=== PATIENT | male | born 1985 | race Caucasian/White ===

== ENCOUNTER 2018-09-05 19:48 | Emergency (ER) | payer OTHER ==
[~2018-09-05 19:48] MED LIST: ALP25 PO; CETI5TAB22 PO; FLUTR; PAN40 PO; RANI-320 PO; SER50 PO
--- NOTE | 2018-09-05 19:51 | ER Report ---
History and Physical Time Seen By MD: 19:51 HPI/ROS CHIEF COMPLAINT: Difficulty breathing HISTORY OF PRESENT ILLNESS: 33-year-old male been sick for approximately one week. He was seen at urgent care a few days ago after using his son's inhaler with improvement. Patient had a chest x-ray today which was negative. He received doxycycline. Patient was improved with albuterol neb. He did receive an inhaler and an albuterol nebulizer for home. Patient took a nebulizer before coming in. On arrival, patient's pulse ox is in the mid 80s. He's complaining of chest discomfort and tightness with deep inspiration. Patient notes no fever. He has a cough of mostly whitish sputum. She took ibuprofen at home several hours ago without improvement. REVIEW OF SYSTEMS: Respiratory: As above Cardiovascular: No chest pain, no palpitations. Gastrointestinal: No vomiting, no abdominal pain. Musculoskeletal: No back pain. Allergies: Coded Allergies: Peanut (Verified Adverse Reaction, Mild, MIGRAIN, 03/29/08) Home Meds Active Scripts Promethazine HCl/Codeine (Promethazine-Codeine Syrup) 6.25 Mg-10 Mg/5 Ml Syrup, 5-10 ML PO Q4-6H PRN for COUGH, #120 Prov:KUSH PEGUERO DO 09/05/18 Prednisone (PREDNISONE) 20 Mg Tablet, 20 MG PO QDAY for reduce lung inflammation, #9 2. By mouth daily for 3 days then 1 by mouth daily for 3 days Prov:KUSH PEGUERO DO 09/05/18 Cefuroxime Axetil (CEFUROXIME) 500 Mg Tablet, 500 MG PO BID for infection, #14 TAB Prov:KUSH PEGUERO DO 09/05/18 Reported Medications Alprazolam (Xanax) 0.25 Mg Tab, 0.25 MG PO TID PRN, #20 0 Refills 03/29/08 Sertraline Hcl (Zoloft) 50 Mg Tab, 50 MG PO QDAY, #30 0 Refills 03/29/08 Fluticasone Propionate (Flonase) 16 Gm [place], 0 NA QDAY, 0 Refills SPRAY 2 SPRAYS IN EACH NOSTRIL 03/29/08 Cetirizine Hcl (Zyrtec) 5 Mg Tablet, 5 MG PO, 0 Refills 03/29/08 Ranitidine Hcl (Zantac 300 Mg) 300 Mg Tablet, 300 MG PO, 0 Refills 03/29/08 Pantoprazole Sod (Protonix) 40 Mg [place], 40 MG PO QDAY, 0 Refills 03/29/08 Past Medical/Surgical History Depression,? Reactive airways disease Past surgical history tonsillectomy Reviewed Nurses Notes: Yes Old Medical Records Reviewed: Yes Constitutional Vital Sign - Last 24 Hours 09/05/18 09/05/18 09/05/18 09/05/18 19:51 19:51 19:55 19:55 Temp 98.8 Pulse 84 84 Resp 20 16 B/P (MAP) 115/72 (86) 115/72 Pulse Ox 86 98 O2 Delivery Room Air Nasal Cannula O2 Flow Rate 2.0 09/05/18 09/05/18 09/05/18 09/05/18 20:00 20:01 20:10 20:15 Pulse 86 Resp 16 B/P (MAP) 107/67 (80) 117/65 (82) O2 Flow Rate 2.0 09/05/18 09/05/18 09/05/18 20:18 20:45 20:48 Pulse 88 81 B/P (MAP) 107/63 (78) Pulse Ox 95 97 Physical Exam Vital signs stable, afebrile, pulse ox mid 80s General Appearance: The patient is alert, has no immediate need for airway protection and no current signs of toxicity. Slightly pale appearing, skin warm and dry HEENT: Pupils equal and round no injection. TMs normal, oropharynx with mild erythema Respiratory: Chest is non tender,expiratory wheezing, poor air movement Cardiac: regular rate and rhythm Gastrointestinal: Abdomen is soft and non tender, no masses, bowel sounds normal. Musculoskeletal: Neck: Neck is supple and non tender. No lymphadenopathy, no JVD Extremities have full range of motion and are non tender. No edema, no calf tenderness Skin: No rashes or lesions. DIFFERENTIAL DIAGNOSIS: After history and physical exam differential diagnosis was considered for shortness of breath including but not limited to pulmonary infectious process, COPD, asthma, pulmonary embolus and congestive heart failure. Medical Decision Making Data Points Result Diagram: 09/05/18195409/05/181954 Laboratory Hematology Test 09/05/18 19:55 09/05/18 20:09 Red Blood Count 4.96 M/uL (4.00-5.60) Mean Corpuscular Volume 88.5 fL (80.0-96.0) Mean Corpuscular Hemoglobin 30.4 pg (26.0-33.0) Mean Corpuscular Hemoglobin Concent 34.3 g/dL (32.0-36.0) Red Cell Distribution Width 13.0 % (11.5-14.5) Mean Platelet Volume 7.6 fL (7.2-11.1) Neutrophils (%) (Auto) 85.3 % (39.4-72.5) Lymphocytes (%) (Auto) 10.6 % (17.6-49.6) Monocytes (%) (Auto) 2.9 % (4.1-12.4) Eosinophils (%) (Auto) 0.7 % (0.4-6.7) Basophils (%) (Auto) 0.5 % (0.3-1.4) Nucleated RBC Relative Count (auto) 0.1 /100WBC Neutrophils # (Auto) 16.0 K/uL (2.0-7.4) Lymphocytes # (Auto) 2.0 K/uL (1.3-3.6) Monocytes # (Auto) 0.5 K/uL (0.3-1.0) Eosinophils # (Auto) 0.1 K/uL (0.0-0.5) Basophils # (Auto) 0.1 K/uL (0.0-0.1) Nucleated RBC Absolute Count (auto) 0.01 K/uL Sodium Level 139 mmol/L (137-145) Potassium Level 3.6 mmol/L (3.5-5.0) Chloride Level 108 mmol/L (98-107) Carbon Dioxide Level 24 mmol/L (22-30) Blood Urea Nitrogen 24 mg/dl (9-21) Creatinine 1.20 mg/dl (0.66-1.25) Glomerular Filtration Rate Calc > 60.0 Random Glucose 138 mg/dl (75-110) Calcium Level 8.9 mg/dl (8.4-10.2) Total Bilirubin 0.5 mg/dl (0.2-1.3) Aspartate Amino Transf (AST/SGOT) 18 U/L (0-35) Alanine Aminotransferase (ALT/SGPT) 20 U/L (0-56) Alkaline Phosphatase 69 U/L (0-126) Troponin I < 0.012 ng/ml B-Type Natriuretic Peptide 31 pg/ml (0-100) Total Protein 6.2 g/dl (6.3-8.2) Albumin 3.7 g/dl (3.5-5.0) D-Dimer Quantitative (PE/DVT) 0.35 ug/ml (0-0.50) Chemistry Test 09/05/18 19:55 09/05/18 20:09 White Blood Count 18.7 k/uL (4.5-11.0) Red Blood Count 4.96 M/uL (4.00-5.60) Hemoglobin 15.1 g/dL (14.0-18.0) Hematocrit 43.9 % (42.0-52.0) Mean Corpuscular Volume 88.5 fL (80.0-96.0) Mean Corpuscular Hemoglobin 30.4 pg (26.0-33.0) Mean Corpuscular Hemoglobin Concent 34.3 g/dL (32.0-36.0) Red Cell Distribution Width 13.0 % (11.5-14.5) Platelet Count 210 K/uL (150-450) Mean Platelet Volume 7.6 fL (7.2-11.1) Neutrophils (%) (Auto) 85.3 % (39.4-72.5) Lymphocytes (%) (Auto) 10.6 % (17.6-49.6) Monocytes (%) (Auto) 2.9 % (4.1-12.4) Eosinophils (%) (Auto) 0.7 % (0.4-6.7) Basophils (%) (Auto) 0.5 % (0.3-1.4) Nucleated RBC Relative Count (auto) 0.1 /100WBC Neutrophils # (Auto) 16.0 K/uL (2.0-7.4) Lymphocytes # (Auto) 2.0 K/uL (1.3-3.6) Monocytes # (Auto) 0.5 K/uL (0.3-1.0) Eosinophils # (Auto) 0.1 K/uL (0.0-0.5) Basophils # (Auto) 0.1 K/uL (0.0-0.1) Nucleated RBC Absolute Count (auto) 0.01 K/uL Glomerular Filtration Rate Calc > 60.0 Calcium Level 8.9 mg/dl (8.4-10.2) Total Bilirubin 0.5 mg/dl (0.2-1.3) Aspartate Amino Transf (AST/SGOT) 18 U/L (0-35) Alanine Aminotransferase (ALT/SGPT) 20 U/L (0-56) Alkaline Phosphatase 69 U/L (0-126) Troponin I < 0.012 ng/ml B-Type Natriuretic Peptide 31 pg/ml (0-100) Total Protein 6.2 g/dl (6.3-8.2) Albumin 3.7 g/dl (3.5-5.0) D-Dimer Quantitative (PE/DVT) 0.35 ug/ml (0-0.50) Coagulation Test 09/05/18 20:09 D-Dimer Quantitative (PE/DVT) 0.35 ug/ml EKG/Imaging EKG Interpretation 12 lead EKG: Normal sinus rhythm Rhythm: normal sinus rhythm [place]: normal QRS: normal ST segments: normal, diffuse T-wave flattening Imaging Results: CT scan of the CTA pulmonary angiogram was obtained. The results of the study are EXAMINATION: CTA of the chest with IV contrast HISTORY: Hypoxia. Chest pain. COMPARISON: None. TECHNIQUE: Pulmonary embolus protocol - Thin-slice axial imaging of the chest was performed during maximal pulmonary arterial opacification with intravenous nonionic iodinated contrast. 3D coronal slab MIPs and 2D reconstructions in the coronal and sagittal planes were performed to aid in pulmonary embolus detection. [employer]ist images have been stored on PACS. CONTRAST: 75 mL of IV Isovue-370 One of the following dose optimization techniques was utilized in the performance of this exam: Automated exposure control; adjustment of the mA and/or kV according to the patient's size; or use of an iterative reconst ruction technique. Specific details can be referenced in the facility's radiology CT exam operational policy. FINDINGS: CTA CHEST: Please note that this exam is optimized for assessment of the pulmonary arteries and is not intended as a diagnostic study of the thoracic aorta, coronary arteries or venous structures. Angiographic Findings: Pulmonary arteries: No filling defects are identified in the main, right, left, lobar, segmental or visualized sub-segmental branches of the pulmonary arterial system. Other vasculature: Negative. Additional non-angiographic findings: Lungs / Pleura: Subsegmental atelectasis in both lower lobes. No pleural effusion or pneumothorax. 2 mm nodule in the superior segment of the left lower lobe (image 119 of series 13). 2 mm nodule in the posterior right upper lobe (image 81 of series 13). Mediastinum / [place]: Negative. Heart / Pericardium: Negative. Musculoskeletal / Body wall: Negative. Lymph node assessment: Negative. Lower neck: Negative. Upper abdomen: Negative. IMPRESSION: No evidence of pulmonary embolism. Subsegmental atelectasis in both lower lobes. A couple 2 mm nodules in the lungs. No follow-up of these is recommended as they are almost certainly benign unless patient has a history of malignancy.. The study was read by the radiologist. I viewed the images myself on the PACS system. ED Course/Re-evaluation Clinical Indication for ER IV: Hydration, IV Access ED Course Patient was admitted to an examination room. H&P was done. The differential diagnoses was considered. Patient with shortness of breath and hypoxia. He had a chest x-ray earlier at urgent care, which is reported as clear. Patient was started on doxycycline. They did talk about steroids but did not start them. He was discharged home on albuterol inhaler and nebulizer. Patient has shortness of breath and sharp chest pain tonight. He splinting his respira tions. Pulse ox is low. He is a productive cough of mostly whitish clear sputum. Patient's treated with IV. His CBC returns a grossly elevated white blood cell count of 19,000. With a left shift. Patient's d-dimer returned negative, but a CTA pulmonary angiogram was ordered. Patient was treated with Solu-Medrol IV, DuoNeb and an albuterol neb. He was given Ceftin 500 mg by mouth prior to discharge. She'll be covered with Ceftin 500 mg by mouth twice a day for one week. He is given Phenergan with codeine cough syrup to suppress his cough. And a prednisone taper of 40 mg 3 days, 20 g 3 days He's advised to continue ibuprofen 600 mg 3 times daily. Patient's advised to take all me dication with food. Patient's advised to use inhaler/nebulizer every 4-6 hours Decision to Disposition Date: Sep 05, 2018 Decision to Disposition Time: 21:34 Depart Departure Latest Vital Signs Vital Signs Date Time Temp Pulse Resp B/P (MAP) Pulse Ox O2 Delivery O2 Flow Rate FiO2 4/28/19 20:48 81 97 09/05/18 20:45 107/63 (78) 09/05/18 20:10 16 09/05/18 20:01 2.0 09/05/18 19:55 Nasal Cannula 09/05/18 19:51 98.8 Impression: Primary Impression: Pneumonia Condition: Improved Disposition: HOME OR SELF-CARE Referrals: LEATHA DOWNING MD, FARRUKH MD New Scripts Promethazine HCl/Codeine (Promethazine-Codeine Syrup) 6.25 Mg-10 Mg/5 Ml Syrup 5-10 ML PO Q4-6H PRN for COUGH, #120 Prov: KUSH PEGUERO DO 09/05/18 Prednisone (PREDNISONE) 20 Mg Tablet 20 MG PO QDAY for reduce lung inflammation, #9 2. By mouth daily for 3 days then 1 by mouth daily for 3 days Prov: KUSH PEGUERO DO 09/05/18 Cefuroxime Axetil (CEFUROXIME) 500 Mg Tablet 500 MG PO BID for infection, #14 TAB Prov: KUSH PEGUERO DO 09/05/18 Patient Instructions: Bacterial Pneumonia (ED) Additional Instructions: Take ibuprofen 200 mg 3 tablets 3 times a day with food Take all medication with food Drink plenty of fluids Stop the doxycycline Follow-up with primary care if unimproved in 3-5 days Problem Qualifiers Primary Impression: Pneumonia Pneumonia type: due to unspecified organism Laterality: bilateral Lung l ocation: lower lobe of lung Qualified Codes: J18.1 - Lobar pneumonia, unspecified organism KUSH PEGUERO DO Sep 05, 2018 19:51
[2018-09-05] MEDS ORDERED: ALBUTEROL/IPRATROPIUM 3 ML NEB NEB ONE (19:55)
[2018-09-05 20:04] LABS: PLATELET COUNT, AUTOMATED 210 K/uL (150-450)
[2018-09-05] MEDS ORDERED: methylPREDNIS SUCC 125 MG/2ML IVP ONE (20:05)
--- NOTE | 2018-09-05 20:14 | EKG ---
FACILITY: [facility] PATIENT NAME: PRETTY GRANDE : [id number] MR: [id number] V: [id number] EXAM DATE: ORDERING PHYSICIAN: KUSH PEGUERO TECHNOLOGIST: LEEANNA Test Reason : RESP PROBLEMS Blood Pressure : / mmHG Vent. Rate : 093 BPM Atrial Rate : 092 BPM P-R Int : 000 ms QRS Dur : 094 ms QT Int : 356 ms P-R-T Axes : 066 064 035 degrees QTc Int : 442 ms Sinus rhythm Artifact in several leads - repeat if needed No previous ECGs available Confirmed by ELLI CAMPBELL ([id number]) on 09/06/2018 5:46:59 AM Referred By: SUDHIR Confirmed By:ELLI CAMPBELL
[2018-09-05] MEDS ORDERED: IOPAMIDOL 76% 150 ML INFUS BTL 150 ML ONE (20:23)
[2018-09-05] MEDS ORDERED: NS(*) 0.9% 50 ML BAG 50 ML ONE (20:24)
[2018-09-05 20:45] VITALS: BP 107/63
--- NOTE | 2018-09-05 21:26 | RADIOLOGY IMAGING REPORT ---
[place] [facility] [place] NAME: Geoff Paulino : 1985 MR: [id number] V: [id number] EXAM DATE: ORDERING PHYSICIAN: KUSH PEGUERO TECHNOLOGIST: Location: [facility] Patient: Geoff Paulino : 1985 Visit/Account:[id number] Date of Sevice: 09/05/2018 EXAMINATION: CTA of the chest with IV contrast HISTORY: Hypoxia. Chest pain. COMPARISON: None. TECHNIQUE: Pulmonary embolus protocol - Thin-slice axial imaging of the chest was performed during maximal pulmonary arterial opacification with intravenous nonionic iodinated contrast. 3D coronal sla b MIPs and 2D reconstructions in the coronal and sagittal planes were performed to aid in pulmonary e mbolus detection. [employer] images have been stored on PACS. CONTRAST: 75 mL of IV Isovue-370 One of the following dose optimization techniques was utilized in the performance of this exam: Autom ated exposure control; adjustment of the mA and/or kV according to the patient's size; or use of an i terative reconstruction technique. Specific details can be referenced in the facility's radiology C T exam operational policy. FINDINGS: CTA CHEST: Please note that this exam is optimized for assessment of the pulmonary arteries and is not intended as a diagnostic study of the thoracic aorta, coronary arteries or venous structures. Angiographic Findings: Pulmonary arteries: No filling defects are identified in the main, right, left, lobar, segmental or v isualized sub-segmental branches of the pulmonary arterial system. Other vasculature: Negative. Additional non-angiographic findings: Lungs / Pleura: Subsegmental atelectasis in both lower lobes. No pleural effusion or pneumothorax. 2 mm nodule in the superior segment of the left lower lobe (image 119 of series 13). 2 mm nodule i n the posterior right upper lobe (image 81 of series 13). Mediastinum / [place]: Negative. Heart / Pericardium: Negative. Musculoskeletal / Body wall: Negative. Lymph node assessment: Negative. Lower neck: Negative. Upper abdomen: Negative. IMPRESSION: No evidence of pulmonary embolism. Subsegmental atelectasis in both lower lobes. A couple 2 mm nodules in the lungs. No follow-up of these is recommended as they are almost certainl y benign unless patient has a history of malignancy.. Report Dictated By: Emil Coburn MD at 09/05/2018 9:08 PM Report E-Signed By: Emil Coburn MD at 09/05/2018 9:22 PM WSN:[email or web address]
[2018-09-05] MEDS ORDERED: ALBUTEROL 2.5 MG/3 ML NEB NEB ONE (21:35)
[2018-09-05] MEDS ORDERED: PROMETH/COD SYRP 6.25-10MG/5ML PO ONE (21:35)
[2018-09-05] MEDS ORDERED: CEFUROXIME AXETIL 250 MG TAB PO ONE (21:35)
[2018-09-05] MEDS ORDERED: CEFU500T10 PO (21:40)
[2018-09-05] MEDS ORDERED: PROM473S4 PO (21:40)
[2018-09-05] MEDS ORDERED: PRED20TA6 PO (21:40)
== END 2018-09-05 21:58 | disposition home or self-care (01) ==
LOC: ER 19:57
DX: J18.1 Lobar pneumonia, unspecified organism (principal)
CPT/HCPCS: 71275; 83880; 84484; 85025; 85379; 93005; 94640; 96374; 99284; J2930; J7050; J7613; J7620; Q9967; 82040; 82247; 82310; 82374; 82435; 82565; 82947; 84075; 84132; 84155; 84295; 84450; 84460; 84520